=== PATIENT | female | born 1975 | race Caucasian/White ===

== ENCOUNTER 2018-04-26 00:10 | Emergency (ER) | payer OTHER ==
--- OUTSIDE RECORDS SUMMARY | 2018-04-26 00:12 | XMS REPORT | Clinical Summary ---
:1975 Author Organization [facility] Address [address] [place] [address] Care Team Providers Name Role Phone Catrina Schulte MD Primary Care Provider Allergies Not on File Current Medications Not on file Active Problems Not on file Social History Tobacco Use Types Packs/Day Years Used Date Never Assessed Sex Assigned at Date Recorded Not on file Last Filed Vital Signs Not on file Plan of Treatment Health Maintenance Due Date Last Done Comments CERVICAL CANCER SCREENING 1997 INFLUENZA VACCINE 06/21/2018 Results Not on fileafter 04/25/2017 Insurance Payer Benefit Plan / Group Subscriber ID Type Phone Address [facility] CHOICE/CHOICE + xxxxxxxxx HMO/PPO
[2018-04-26] MEDS ORDERED: NA CHLORIDE 0.9% 1,000 ML ONE (01:31)
[2018-04-26 01:57] LABS: Absolute Lymphocytes (CBC) 1.5 K/uL (0.7-4.9); Absolute Monocytes 0.7 K/uL (0.1-1.3); Absolute Neutrophil 7.2 K/uL (1.8-8.0); Basophils % 0.7 % (0-1.3); Eosinophils % 2.4 % (0-4.4); Hematocrit 35.7 % (36.0-45.0); Lymphocytes % 15.5 % (15.3-44.8); MCH 25.3 pg (27.0-35.0); MCV 77.1 fL (80-100); MPV 7.3 fL (7.6-11.3); Monocytes % 7.1 % (3.3-12.3); RBC Red Blood Cell Count 4.63 M/uL (3.86-4.86)
[2018-04-26 02:02] LABS: Bicarbonate 28 mEq/L (21-31); Glucose Level 141 mg/dL (65-120); Lipase 44 U/L (22-51); Potassium 3.7 mEq/L (3.6-5.0); Sodium Level 139 mEq/L (135-145)
[2018-04-26 02:09] LABS: ALT/SGPT 54 IU/L (10-60); AST/SGOT 47 IU/L (10-42); Albumin 3.8 g/dL (3.2-5.5); Alkaline Phosphatase 85 IU/L (42-121); BUN Blood Urea Nitrogen 16 mg/dL (6-20); Bilirubin Direct < 0.1 mg/dL (0-0.2); Bilirubin Total 0.3 mg/dL (0.3-1.2); Protein, Total 7.2 g/dL (6.0-8.3)
[2018-04-26 02:38] LABS: Urine Blood TRACE (NEG); Urine Glucose NEGATIVE (NEG); Urine Protein NEGATIVE (NEG); Urine Specific Gravity 1.015 (1.005-1.030)
[2018-04-26 02:38] LABS: Urine Specific Gravity 1.015 (1.005-1.030)
[2018-04-26 02:40] LABS: Urine Bacteria <20 /HPF (<20); Urine Culture Reflex Order NOT NEEDED; Urine RBC NONE SEEN /HPF (NONE SEEN)
--- NOTE | 2018-04-26 03:29 | ER ---
Nurse's Notes [facility] Name: Reina Franklin Age: 42 yrs Sex: Female : 1975 Arrival Date: 04/26/2018 Time: 00:13 Bed 14 Private MD: Darrell Ramirez Diagnosis: Hydronephrosis with renal and ureteral calculous obstruction Presentation: 04/26 00:40 Presenting complaint: Patient states: "I am having on and off pain for 3 weeks on my jd3 left side, starting around the ovary area then radiating around to my back and up into the left side of my abdomen. I m taking Lupron which puts me into menopause so it might be that, but the pain just gets unbearable when laying down.". 00:41 Transition of care: patient was not received from another setting of care. Onset of tl2 symptoms was April 04, 2018. Risk Assessment: Do you want to hurt yourself or someone else? Patient reports no desire to harm self or others. Initial Sepsis Screen: Does the patient meet any 2 criteria? No. Patient's initial sepsis screen is negative. Does the patient have a suspected source of infection? No. Patient's initial sepsis screen is negative. Care prior to arrival: None. 00:41 Method Of Arrival: Ambulatory tl2 00:41 Acuity: KAILEY 3 tl2 Triage Assessment: 00:41 General: Appears in no apparent distress. uncomfortable, Behavior is calm, cooperative, tl2 appropriate for age. Pain: Complains of pain in left inguinal area Pain radiates to left lower quadrant and pelvis Pain currently is 3 out of 10 on a pain scale. Quality of pain is described as sharp, shooting. Neuro: Level of Consciousness is awake, alert, obeys commands, Oriented to person, place, time, situation. Cardiovascular: Denies chest pain. Respiratory: Airway is patent Respiratory effort is even, unlabored, Respiratory pattern is regular, symmetrical. GI: Abdomen is non-distended, Abd is soft and non tender. : No signs and/or symptoms were reported regarding the genitourinary system. Derm: Skin is pink, warm \\T\\ dry. 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:41 LMP N/A - Irregular menses tl2 Historical: - Allergies: 01:02 TRICYCLIC COMPOUNDS; jd3 01:02 Adhesives; jd3 01:02 Prozac; jd3 - Home Meds: 01:02 metformin 1,000 mg Oral tr24 1 tab once daily [Active]; losartan-hydrochlorothiazide jd3 oral oral [Active]; Nasacort Nasal [Active]; Zyrtec Oral [Active]; omeprazole Oral [Active]; Vitamin B-12 Oral [Active]; multivitamin oral oral [Active]; Vitamin D Oral [Active]; Magnesium Oxide Oral [Active]; Arimidex Oral [Active]; - PMHx: 01:02 shankar breast cancer; jd3 - PSHx: 01:02 shankar masectomy; ; left foot sx; Cholecystectomy; lymph node removal; jd3 - Immunization history:: Adult Immunizations up to date. - Social history:: Smoking status: Patient/guardian denies using tobacco. - Ebola Screening: : No symptoms or risks identified at this time. Screenin:45 Abuse screen: Denies threats or abuse. Nutritional screening: No deficits noted. tl2 Tuberculosis screening: No symptoms or risk factors identified. Fall Risk None identified. Assessment: 00:45 General: see triage assessment. tl2 02:45 Reassessment: Patient appears in no apparent distress at this time. Patient and/or tl2 family updated on plan of care and expected duration. Pain level reassessed. Patient is alert, oriented x 3, equal unlabored respirations, skin warm/dry/pink. 03:41 Reassessment: Patient appears in no apparent distress at this time. Patient and/or tl2 family updated on plan of care and expected duration. Pain level reassessed. Patient is alert, oriented x 3, equal unlabored respirations, skin warm/dry/pink. Pt verbalized understanding of discharge instructions, need for follow up and prescription usage Patient states feeling better. Vital Signs: 00:41 BP 140 / 99; Pulse 100; Resp 17; Temp 98.4(O); Pulse Ox 99% on R/A; Weight 115.21 kg; tl2 Height 5 ft. 6 in. (167.64 cm); Pain 3/10; 02:43 BP 126 / 84; Pulse 86; Resp 18; Pulse Ox 100% on R/A; tl2 00:41 Body Mass Index 41.00 (115.21 kg, 167.64 cm) tl2 ED Course: 00:13 Patient arrived in ED. ds1 00:13 Darrell Ramirez MD is Private Physician. ds1 00:41 Andreina Rush RN is Primary Nurse. tl2 00:41 Arm band placed on right wrist. tl2 00:42 Triage completed. tl2 00:45 Patient has correct armband on for positive identification. Placed in gown. Bed in low tl2 position. Call light in reach. Side rails up X 1. 01:11 Franki Hall NP is PHCP. pm1 01:11 Cliff Kennedy MD is Attending Physician. pm1 01:25 Inserted saline lock: 22 gauge in right antecubital area, using aseptic technique. tl2 Blood collected. 02:[address] via wheelchair. kw1 02:36 CT Abd/Pelvis - W/Contrast: IV contrast only In Process Unspecified. EDMS 02:36 CT completed. Patient tolerated procedure well. Patient moved back from CT. kw1 03:28 Amilcar Cole MD is Referral Physician. pm1 03:41 No provider procedures requiring assistance completed. IV discontinued, intact, tl2 bleeding controlled, No redness/swelling at site. Pressure dressing applied. Administered Medications: 01:31 Drug: NS 0.9% 1000 ml Route: IV; Rate: 1000 ml; Site: right antecubital; tl2 03:41 Follow up: IV Status: Completed infusion; IV Intake: 1000ml tl2 03:41 Drug: Flomax 0.4 mg Route: PO; tl2 03:42 Follow up: Response: No adverse reaction; Medication administered at discharge. tl2 Intake: 03:41 IV: 1000ml; Total: 1000ml. tl2 Outcome: 03:28 Discharge ordered by . pm1 03:41 Discharged to home ambulatory. tl2 03:41 Condition: stable 03:41 Discharge instructions given to patient, Instructed on discharge instructions, follow up and referral plans. medication usage, Demonstrated understanding of instructions, follow-up care, medications, Prescriptions given X 2. 03:42 Patient left the ED. tl2 Signatures: Dispatcher [employer] EDVA Felicia Warren ds1 Franki Hall NP PAPER MACHINE SUPERVISOR pm1 Andreina Rush RN RN tl2 Humble Chapa RN RN jd3 Wilhelm, Kimberly kw1 Corrections: (The following items were deleted from the chart) 02:12 02:11 Radiology exam delayed due to lab results not completed at this time. kw1 kw1
--- NOTE | 2018-04-26 03:29 | EDPHYS ---
Physician Documentation [facility] Name: Reina Franklin Age: 42 yrs Sex: Female : 1975 Arrival Date: 04/26/2018 Time: 00:13 Bed 14 Private MD: Darrell Ramirez ED Physician Cliff Kennedy HPI: 04/26 01:18 This 42 yrs old Female presents to ER via Ambulatory with complaints of pm1 Abdominal Pain. 01:18 The patient presents with abdominal pain in the left lower quadrant. Onset: The pm1 symptoms/episode began/occurred 3 week(s) ago, and became worse 1 week(s) ago. The symptoms radiate to to left upper quadrant and suprapubic area. Associated signs and symptoms: Pertinent negatives: nausea, vomiting, and diarrhea, chest pain, dysuria, fever, shortness of breath. The symptoms are described as sharp, Feels like constant ovulation. Modifying factors: The symptoms are alleviated by Standing up and sitting makes it better. Worse with lying down. Severity of pain: in the emergency department the pain is actually worse. The patient has not recently seen a physician. TEST BAKER: 00:41 LMP N/A - Irregular menses tl2 Historical: - Allergies: 01:02 TRICYCLIC COMPOUNDS; jd3 01:02 Adhesives; jd3 01:02 Prozac; jd3 - Home Meds: 01:02 metformin 1,000 mg Oral tr24 1 tab once daily [Active]; losartan-hydrochlorothiazide jd3 oral oral [Active]; Nasacort Nasal [Active]; Zyrtec Oral [Active]; omeprazole Oral [Active]; Vitamin B-12 Oral [Active]; multivitamin oral oral [Active]; Vitamin D Oral [Active]; Magnesium Oxide Oral [Active]; Arimidex Oral [Active]; - PMHx: 01:02 shankar breast cancer; jd3 - PSHx: 01:02 shankar masectomy; ; left foot sx; Cholecystectomy; lymph node removal; jd3 - Immunization history:: Adult Immunizations up to date. - Social history:: Smoking status: Patient/guardian denies using tobacco. - Ebola Screening: : No symptoms or risks identified at this time. ROS: 01:18 Constitutional: Negative for fever, chills, and weight loss, Eyes: Negative for injury, pm1 pain, redness, and discharge, ENT: Negative for injury, pain, and discharge, Neck: Negative for injury, pain, and swelling, Cardiovascular: Negative for chest pain, palpitations, and edema, Respiratory: Negative for shortness of breath, cough, wheezing, and pleuritic chest pain. 01:18 Back: Negative for injury and pain, : Negative for injury, bleeding, discharge, and swelling, MS/Extremity: Negative for injury and deformity, Skin: Negative for injury, rash, and discoloration. 01:18 Neuro: Negative for headache, weakness, numbness, tingling, and seizure. 01:18 Abdomen/GI: Positive for abdominal pain, of the left lower quadrant, Negative for nausea, vomiting, and diarrhea. Exam: 01:18 Constitutional: This is a well developed, well nourished patient who is awake, alert, pm1 and in no acute distress. Head/Face: Normocephalic, atraumatic. Eyes: Pupils equal round and reactive to light, extra-ocular motions intact. Lids and lashes normal. Conjunctiva and sclera are non-icteric and not injected. Cornea within normal limits. Periorbital areas with no swelling, redness, or edema. ENT: Nares patent. No nasal discharge, no septal abnormalities noted. Tympanic membranes are normal and external auditory canals are clear. Oropharynx with no redness, swelling, or masses, exudates, or evidence of obstruction, uvula midline. Mucous membranes moist. Neck: Trachea midline, no thyromegaly or masses palpated, and no cervical lymphadenopathy. Supple, full range of motion without nuchal rigidity, or vertebral point tenderness. No Meningismus. Chest/axilla: Normal chest wall appearance and motion. Nontender with no deformity. No lesions are appreciated. Cardiovascular: Regular rate and rhythm with a normal S1 and S2. No gallops, murmurs, or rubs. Normal PMI, no JVD. No pulse deficits. Respiratory: Lungs have equal breath sounds bilaterally, clear to auscultation and percussion. No rales, rhonchi or wheezes noted. No increased work of breathing, no retractions or nasal flaring. 01:18 Back: No spinal tenderness. No costovertebral tenderness. Full range of motion. Skin: Warm, dry with normal turgor. Normal color with no rashes, no lesions, and no evidence of cellulitis. MS/ Extremity: Pulses equal, no cyanosis. Neurovascular intact. Full, normal range of motion. 01:18 Abdomen/GI: Inspection: abdomen appears normal, Bowel sounds: normal, Palpation: soft, mild abdominal tenderness, in the left lower quadrant, mass, is not appreciated, rebound tenderness, is not appreciated. 01:18 Neuro: Orientation: is normal, Mentation: is normal, Motor: is normal, moves all fours, Sensation: is normal, no obvious gross deficits. Vital Signs: 00:41 BP 140 / 99; Pulse 100; Resp 17; Temp 98.4(O); Pulse Ox 99% on R/A; Weight 115.21 kg; tl2 Height 5 ft. 6 in. (167.64 cm); Pain 3/10; 02:43 BP 126 / 84; Pulse 86; Resp 18; Pulse Ox 100% on R/A; tl2 00:41 Body Mass Index 41.00 (115.21 kg, 167.64 cm) tl2 MDM: 01:11 Patient medically screened. pm1 03:27 Data reviewed: vital signs. Data interpreted: Pulse oximetry: on room air is 100 %. pm1 Interpretation: normal. Counseling: I had a detailed discussion with the patient and/or guardian regarding: the historical points, exam findings, and any diagnostic results supporting the discharge/admit diagnosis, lab results, radiology results, the need for outpatient follow up, a urologist, to return to the emergency department if symptoms worsen or persist or if there are any questions or concerns that arise at home. 03:29 ED course: Normal WBC, Urine, Creatine. Patient refused pain medications in ER. Patient pm1 candidate for outpatient therapy and follow up with urology. . 03:33 Special discussion: I discussed with the patient the need to follow-up with the pm1 PCP/specialist for the noted incidental finding on X-ray/CT scanning. liver findings will need to be compared by radiologist in the AM for the findings by VRag . 04/26 01:17 Order name: Basic Metabolic Panel pm1 04/26 01:17 Order name: CBC with Diff; Complete Time: 02:10 pm1 04/26 01:17 Order name: Creatinine for Radiology; Complete Time: 02:10 pm1 04/26 01:17 Order name: Hepatic Function pm1 04/26 01:17 Order name: Lipase; Complete Time: 02:10 pm1 04/26 01:17 Order name: Urine Microscopic Only; Complete Time: 02:57 pm1 04/26 01:17 Order name: Urine Test (obtain specimen); Complete Time: 02:06 pm1 04/26 01:17 Order name: CT Abd/Pelvis - W/Contrast: IV contrast only; Complete Time: 16:28 pm1 04/26 01:17 Order name: Basic Metabolic Panel; Complete Time: 02:10 EDMS 04/26 01:17 Order name: Liver (Hepatic) Function; Complete Time: 02:10 EDMS 04/26 02:07 Order name: Urine Dipstick--Ancillary (enter results); Complete Time: 02:57 rg2 04/26 02:09 Order name: Urine --Ancillary (enter results); Complete Time: 02:57 rg2 04/26 01:17 Order name: IV Saline Lock; Complete Time: 01:32 pm1 04/26 01:17 Order name: Labs collected and sent; Complete Time: 01:32 pm1 04/26 01:17 Order name: Urine Dipstick-Ancillary (obtain specimen); Complete Time: 02:06 pm1 Administered Medications: 01:31 Drug: NS 0.9% 1000 ml Route: IV; Rate: 1000 ml; Site: right antecubital; tl2 03:41 Follow up: IV Status: Completed infusion; IV Intake: 1000ml tl2 03:41 Drug: Flomax 0.4 mg Route: PO; tl2 03:42 Follow up: Response: No adverse reaction; Medication administered at discharge. tl2 Disposition: 07:18 Co-signature as Attending Physician, Cliff Kennedy MD Available for consultation at ps1 all times. . Disposition: 04/26/18 03:28 Discharged to Home. Impression: Hydronephrosis with renal and ureteral calculous obstruction. - Condition is Stable. - Discharge Instructions: Kidney Stones, Dietary Guidelines to Help Prevent Kidney Stones. - Prescriptions for Tylenol- Codeine #3 300-30 mg Oral Tablet - take 2 tablets by ORAL route every 6 hours As needed; 20 tablet. Flomax 0.4 mg Oral Capsule, Sust. Release 24 hr - take 1 capsule by ORAL route once daily 1/2 hour following the same meal each day; 30 capsule. - Medication Reconciliation Form, Thank You Letter, Antibiotic Education, Prescription Opioid Use form. - Follow up: Emergency Department; When: As needed; Reason: Worsening of condition. Follow up: Amilcar Cole MD; When: 2 - 3 days; Reason: Recheck today's complaints, Continuance of care, Re-evaluation by your physician. - Problem is new. - Symptoms have improved. Signatures: Dispatcher [employer] EDMS Franki Hall NP APPLICATION PROGRAMMER ANALYST pm1 Andreina Rush RN RN tl2 Humble Chapa RN RN jd3 Cliff Kennedy MD MD ps1 Corrections: (The following items were deleted from the chart) 03:42 03:28 04/26/2018 03:28 Discharged to Home. Impression: Hydronephrosis with renal and tl2 ureteral calculous obstruction. Condition is Stable. Forms are Medication Reconciliation Form, Thank You Letter, Antibiotic Education, Prescription Opioid Use. Follow up: Emergency Department; When: As needed; Reason: Worsening of condition. Follow up: Amilcar Cole; When: 2 - 3 days; Reason: Recheck today's complaints, Continuance of care, Re-evaluation by your physician. Problem is new. Symptoms have improved. pm1
[2018-04-26] MEDS ORDERED: TAMSULOSIN 0.4 MG SR CAP ONE (03:36)
--- NOTE | 2018-04-26 07:35 | RAD REPORT ---
EXAM DESCRIPTION: CT - Abdomen Pelvis W Contrast - 04/26/2018 4:08 am CLINICAL HISTORY: Abdominal pain for 3 weeks. Left abdominal pain. Breast cancer COMPARISON: 2017 PET scan TECHNIQUE: Computed axial tomography of the abdomen pelvis was obtained. 100 cc Isovue-300 was admin istered intravenously. Oral contrast was not requested which limits evaluation of bowel. A preliminary report was generated by [employer] and reviewed prior to this dictation All CT scans are performed using dose optimization technique as appropriate and may include automated exposure control or mA/KV adjustment according to patient size. FINDINGS: The liver has a diminished attenuation consistent with fatty infiltration. A centimeter le re with a low-density center is present within segment V it demonstrates peripheral enhancement. A 7 millimeter enhancing lesion is present within segment VII two additional sub sub centimeter enhanci ng lesions are present within the liver. The portal vein is patent. There is a delay in concentration of contrast within the left kidney with mild left hydronephrosis. A 6 millimeter calculus Hounsfield unit 980 is present at ureteral pelvic junction. The spleen, pancreas, adrenals and right kidney appear unremarkable. There is no evidence of diverticulitis. The appendix is normal caliber. An adnexal mass is not seen. A tiny umbilical hernia is seen IMPRESSION: 6 millimeter calculus left ureteral pelvic junction resulting in mild left hydronephrosi s Hepatic lesions probably representing metastases. MRI the liver with contrast and delayed sequences i s recommended for further evaluation
== END 2018-04-26 03:42 | disposition home or self-care (01) ==
LOC: ER 00:10
DX: N13.2 Hydronephrosis with renal and ureteral calculous obstruction (principal); Z90.13 Acquired absence of bilateral breasts and nipples; Z85.3 Personal history of malignant neoplasm of breast; Z88.5 Allergy status to narcotic agent; Z88.8 Allergy status to other drugs, medicaments and biological substances
CPT/HCPCS: 36415; 74177; 80048; 80076; 81003; 81015; 81025; 83690; 85025; 96360; 96361; 99284; J7030; Q9967

== ENCOUNTER 2018-05-15 09:43 | Day surgery (SDC) | payer OTHER ==
--- NOTE | 2018-05-15 09:33 | EKG ---
Test Date: 2018-05-15 Test Time: 09:30:02 Jammer Operator: KELLEY MEASUREMENT RESULTS: Intervals: Rate: 74 ME: 176 QRSD: 100 QT: 382 QTc: 424 Showell: P: 25 ME: 176 QRS: -10 T: 10 INTERPRETIVE STATEMENTS: Normal sinus rhythm Normal ECG No previous ECG available for comparison Electronically Signed On 05-15-18 09:33:04 CDT by Royal Dubon
--- OUTSIDE RECORDS SUMMARY | 2018-05-15 09:47 | XMS REPORT | Clinical Summary ---
:1975 Author Organization [facility] Address [address] [place] [address] Care Team Providers Name Role Phone Catrina [...] INFLUENZA VACCINE 06/21/2018 Results Not on fileafter 05/14/2017 Insurance Payer Benefit Plan / Group Subscriber ID Type Phone Address [facility] CHOICE/CHOICE + xxxxxxxxx HMO/PPO
[2018-05-15 09:48] LABS: Absolute Lymphocytes (CBC) 1.2 K/uL (0.7-4.9); Absolute Monocytes 0.5 K/uL (0.1-1.3); Absolute Neutrophil 4.9 K/uL (1.8-8.0); Basophils % 0.8 % (0-1.3); Hematocrit 38.6 % (36.0-45.0); Lymphocytes % 17.9 % (15.3-44.8); MCH 25.5 pg (27.0-35.0); MCV 77.7 fL (80-100); MPV 6.9 fL (7.6-11.3); Monocytes % 6.9 % (3.3-12.3); RBC Red Blood Cell Count 4.97 M/uL (3.86-4.86)
[2018-05-15 09:59] LABS: BUN Blood Urea Nitrogen 16 mg/dL (7-18); Bicarbonate 29 mmol/L (21-32); Glucose Level 105 mg/dL (74-106); Potassium 3.7 mmol/L (3.5-5.1); Sodium Level 137 mmol/L (136-145)
[2018-05-15] MEDS ORDERED: Ringers Lactate 1,000 ML IV ONE (10:09)
--- NOTE | 2018-05-15 10:33 | RAD REPORT ---
EXAM DESCRIPTION: RAD - Chest Pa And Lat (2 Views) - 05/15/2018 9:37 am CLINICAL HISTORY: Breast carcinoma Chest pain. COMPARISON: Chest Single View dated 03/23/2017; CHEST PA AND LAT 2 VIEW dated 09/12/2012; CHEST PA AND LAT 2 VIEW dated 03/14/2009 FINDINGS: The lungs are clear. The heart is normal in size. No displaced fractures. No aggressive grecia ne lesion. IMPRESSION: No acute or concerning finding suspected.
[2018-05-15] MEDS ORDERED: PROPOFOL 200 MG/20 ML VIAL IV ONE (11:08)
[2018-05-15] MEDS ORDERED: LIDOCAINE 2% MPF 5 ML VIAL ONE (11:09)
[2018-05-15] MEDS ORDERED: FENTANYL CITR 100 MCG/2 ML ONE ×2 (11:09→12:55)
[2018-05-15] MEDS ORDERED: ONDANSETRON HCL 40 MG/20 ML VIAL ONE ×2 (11:10→11:11)
[2018-05-15] MEDS ORDERED: MIDAZOLAM HCL 2 MG/2 ML INJ ONE (11:11)
[2018-05-15] MEDS ORDERED: NS 0.9% VIAL 20 ML ONE (11:13)
[2018-05-15] MEDS ORDERED: LIDOCAINE 1% 20 ML MDV ONE (11:14)
[2018-05-15] MEDS ORDERED: HEPARIN 5000 UNIT/ML 1 ML VIAL ONE (11:14)
[2018-05-15] MEDS ORDERED: CEFAZOLIN/SWI 1gm 1 GM/10 ML SYR ONE (12:19)
--- NOTE | 2018-05-15 13:28 | P.BOP ---
Preoperative diagnosis: breast cancer Postoperative diagnosis: same Primary procedure: 1. Placement of Portacath Secondary procedure: 2. Interpretation of fluoroscopy Estimated blood loss: <5cc Specimen: none Findings: as above Anesthesia: General Complications: None Implants: single lumen portacath Transferred to: Recovery Room Condition: Good
--- NOTE | 2018-05-15 13:29 | RAD REPORT ---
EXAM DESCRIPTION: RAD - Fluoroscopy <1 Hour - 05/15/2018 1:21 pm CLINICAL HISTORY: Venous catheter insertion. PORT-A-CATH PLACEMENT IN OR 1 COMPARISON: Fluoroscopy <1 Hour dated 03/23/2017 FINDINGS: Fluoroscopic imaging is submitted from placement of a venous catheter. Details of the pro cedure not available. Fluoroscopy time: 1 minutes and 4 seconds.
[2018-05-15] MEDS: MEPERIDINE HCL 25 MG/0.5 ML ONE ×2 (13:36→13:52)
[2018-05-15] MEDS ORDERED: PROMETHAZINE 25 MG/ML VIAL ONE (13:47)
--- NOTE | 2018-05-15 13:56 | RAD REPORT ---
EXAM DESCRIPTION: RAD - Chest Single View - 05/15/2018 1:49 pm CLINICAL HISTORY: S/P PORT-A-CATH PLACEMENT Chest pain. COMPARISON: Chest Pa And Lat (2 Views) dated 05/15/2018; Chest Single View dated 03/23/2017; CHEST PA A ND LAT 2 VIEW dated 09/12/2012; CHEST PA AND LAT 2 VIEW dated 03/14/2009 FINDINGS: Portable technique limits examination quality. The lungs are grossly clear. Right-sided venous catheter its tip in the SVC. No postprocedure pneumot horax. The heart is upper limit normal in size. IMPRESSION: No postprocedure pneumothorax.
[2018-05-15] MEDS ORDERED: CODEINE 30MG/APAP 300MG TAB ONE (14:49)
--- NOTE | 2018-05-17 02:58 | OP ---
Date of Procedure: 05/15/2018 Surgeon: Charles Avendaño MD Industrial Gas Service Helper: None. Preoperative Diagnosis: Metastatic breast cancer. Postoperative Diagnosis: Metastatic breast cancer. Procedures: 1.Placement of Port-A-Cath. 2.Interpretation of fluoroscopy. Anesthesia: General plus local. Implant: A single-lumen Port-A-Cath. Indications: This is the case of a female, who comes to us with history of metastatic breast cancer. She needed a Port-A-Cath placement for receiving chemotherapy. Benefits, alternatives, and risks o f placement were fully explained to the patient, which include but are not limited to infection, blee ding, damage to adjacent structures, anesthesia complication, pneumothorax, hemothorax, DVTs, breakag e of the catheter, ME and even . She also understands this may not relieve any symptoms. She m ight need more than one surgical intervention. She understand also the risks of pneumothorax, unders tand the moment the Port-A-Cath has not been used by the Oncologist to come back to remove it. If sh e opts or the Oncology Service decide to keep this Port-A-Cath longer, then they have to contact home health agencies to do flushing monthly of this device. The patient understood. Description Of Procedure: The patient was brought to the operating room, placed in supine position. Anesthesia was done without complication and right chest was prepped and draped in a sterile fashion . The patient was placed in Trendelenburg position. An 18-gauge needle was placed in subclavian vei n at its first attempt. A guidewire was passed through, directed into superior vena cava. After annette t, a small incision was made on the upper chest and a pocket was created. At that moment, I proceede d to put an introducer sheath over the guidewire under fluoroscopy guidance. We removed the guidewir e, and placed the catheter through it and superior vena cava and removed the introducer sheath. The catheter was tunneled underneath the skin to meet the new incision in the right upper chest, cut to p leda size using fluoroscopy guidance, connecting to Port-A-Cath using the boat fueler's specificati ons. Excellent backflow and inflow. The Port-A-Cath is in the pocket already, secured in place and sutured to the underlying tissue. No leakage. At that moment, I proceeded to put the patient back t o normal position, closed the subcutaneous tissue with 3-0 chromic and Steri-Strip. The patient jyotsnae rated the procedure well. The patient was sent to Recovery in stable condition. Diagnosis: Metastatic breast cancer. Procedure: Placement of Port-A-Cath under fluoroscopy. Disposition: Home. Activity: As tolerated. No heavy lifting. Followup: Follow up in my office in 1 week. Call for appointment [phone]. Keep area dry for 48 ho urs, then may shower. Keep the Steri-Strips intact. Chest x-ray will be ordered and check before di daniela. Medications: See orders. ANDREY/MODL Voice ID: [id number] Report ID: [id number]
== END 2018-05-15 15:30 | disposition home or self-care (01) ==
LOC: OR 09:43
PROVIDERS: ATTEND Surgery
PROC: B518YZA Fluoroscopy of Superior Vena Cava using Other Contrast, Guidance (ICD-10-PCS; 2018-05-15)
PROC: 02HV33Z Insertion of Infusion Device into Superior Vena Cava, Percutaneous Approach (ICD-10-PCS; principal; 2018-05-15 11:45)
DX: C50.919 Malignant neoplasm of unspecified site of unspecified female breast (principal); E11.9 Type 2 diabetes mellitus without complications; Z79.84 Long term (current) use of oral hypoglycemic drugs; I10 Essential (primary) hypertension; E03.9 Hypothyroidism, unspecified
CPT/HCPCS: 36415; 71045; 71046; 76000; 80048; 81025; 85025; 93005; C1788; J0690; J1644; J2175; J2250; J2405; J2550; J3010